=== PATIENT | male | born 1975 | race African-American/Black ===

== ENCOUNTER 2023-11-01 18:40 | Emergency (ER) | payer MEDICAID ==
[~2023-11-01] VITALS: Ht 182.9 cm; Wt 88.5 kg
[2023-11-01 19:28] VITALS: BP_SYST 167; PULSE 74; RESP 17; TEMP 97.6; O2SAT 99
[2023-11-01 20:22] LABS: BASOPHILS # (AUTO) 0.1 K/uL (0.0-0.2); BASOPHILS % (AUTO) 1.2 % (0.0-2.0); EOSINOPHILS # (AUTO) 0.3 K/uL (0.0-0.4); EOSINOPHILS % (AUTO) 5.5 % (0.0-4.0); HEMATOCRIT 39.8 % (36-54); HEMOGLOBIN 13.1 g/dL (14.0-18.0); LYMPHOCYTES # (AUTO) 2.4 K/uL (1.0-5.5); LYMPHOCYTES % (AUTO) 40.8 % (20.5-51.5); MEAN CORPUSCULAR HEMOGLOBIN 27 pg (27-31); MEAN CORPUSCULAR HGB CONC 33 % (32-36); MEAN CORPUSCULAR VOLUME 82 fL (79.0-98.0); MONOCYTES # (AUTO) 0.6 K/uL (0.0-1.0); MONOCYTES % (AUTO) 9.5 % (1.7-9.3); NEUTROPHILS # (AUTO) 2.5 K/uL (1.8-7.7); PLATELET COUNT (AUTO) 215 K/uL (130-430); RED BLOOD CELL COUNT(AUTO) 4.85 MIL/uL (4.2-6.2); RED CELL DISTRIBUTION WIDTH 13.6 % (9.0-15.0); WHITE BLOOD COUNT (AUTO) 5.9 K/uL (4.8-10.8)
[2023-11-01 20:31] LABS: ERYTHROCYTE SEDIMENTATION RATE 10 MM/HR (0-15)
[2023-11-01 20:45] LABS: CALCIUM 8.8 mg/dL (8.4-11.0); CREATININE 0.97 mg/dL (0.55-1.30); POTASSIUM 3.9 mmol/L (3.5-5.1); URIC ACID 6.5 mg/dL (2.4-7.0)
[2023-11-01] MEDS ORDERED: IBUP-1971 PO (21:07)
[2023-11-01] MEDS ORDERED: HYDR-3917 PO (21:07)
[2023-11-01] MEDS ORDERED: DIPHTH,PERTUSS(ACELL),TET VAC 0.5 ML VIAL (Tdap) I.M. ONE (21:15)
[2023-11-01 21:35] VITALS: BP_SYST 147; PULSE 77
== END 2023-11-01 21:35 | disposition home or self-care (01) ==
LOC: SED 18:40
DX: S63.630A Sprain of interphalangeal joint of right index finger, initial encounter (principal); Z79.899 Other long term (current) drug therapy; W46.1XXA Contact with contaminated hypodermic needle, initial encounter; Y93.89 Activity, other specified; Y92.89 Other specified places as the place of occurrence of the external cause; Y99.8 Other external cause status
CPT/HCPCS: 36415; 80048; 84550; 85025; 85651; 90715; 99284